=== PATIENT | male | born 1960 | race Caucasian/White ===

== ENCOUNTER 2021-07-26 05:18 | Inpatient (IN) | payer BC, OTHER ==
[2021-07-26] VITALS (10 sets, daily range): BP systolic 112–165; BP diastolic 60–101
[~2021-07-26] VITALS: Ht 177.8 cm; Wt 119.7 kg
[~2021-07-26 05:18] MED LIST: ALBU2.5V8 INH; AMLO-187 PO; ASPI325T8 PO; BENA40TA3 PO; CLON-276 PO; DOXA4TAB3 PO; FURO40TA4 PO; METF10007 PO; METO50TA6 PO; POTA-121 PO; SPIR25TA5 PO
--- NOTE | 2021-07-26 05:22 | PHYS DOC ---
Past History Past Medical History: No Pertinent History, Anemia, Arthritis, Hypertension (SUNITA PANIAGUA MD) Past Medical History: Cancer (skin ), COPD, Diabetes Additional Past Medical Histor: Maria Luz Danlos Syndrome, Sleep Apnea, BPH, Glaucoma, ED Past Medical History Chronic Sinusitis (BENJA ENNIS DO) Past Surgical History: No Surgical History, Cancer Surgery (SUNITA PANIAGUA MD) Additional Past Surgical Histo: Retinal surgery 2015, Cataract, Carpal Tunnel, Knee surgery, Hernia (BENJA ENNIS DO) Smoking: Cigarettes, Quit Greater Than 1 Year Alcohol Use: Occasionally Drug Use: None (SUNITA PANIAGUA MD) General Adult HPI: HPI: ".. I woke up with shortness of breath yesterday.. and I took one my breathing treatments... and same thing happened tonight.. but I figured.. I should come in tonight..." Patient is a 60 year old male who presents with above hx and complaints of increased dyspnea x 2 day.s The dyspnea yesterday night was relieved with albuterol treatment. Pt. denies any fever or chills. No recent travel. No specific ill contacts. No history of immunosuppression. Patient normally follows with Dr. Holly as a primary. Patient does have significant medical history with multiple diagnosis. Primary diagnosis COPD and emphysema, diabetes, retinal detachment, chronic sinusitis, chronic right knee pain, Maria Luz-Danlos syndrome, sleep apnea, hypertension, enlarged prostate, erectile dysfunction. Patient is also had multiple surgeries YAG laser both eyes 2016, endoscopic sinus surgery 316, oral surgery remove growth on tongue to of 16, cardiac catheterization on 10/05/2005, retinal detachment on 12/23/2014, cataract left eye removal 07-20 and right eye removed on 1027 bilateral arthroscopic evaluations both knees on 514 and carpal tunnel repair on 08/2012. Osteomyelitis right leg and ankle 1981 in 1981 skin cancer right elbow times 11/2001 and 2002 now noncancerous growth left elbow and right ankle removed 1973 [facility] and her [facility] repair and 2 1997 at [facility]. Patient reports he is no longer smokes tobacco.. Pt. states he has never been dx of Afib. (SUNITA PANIAGUA MD) Review of Systems: Review of Systems: Constitutional: Denies fever or chills Eyes: Denies change in visual acuity HENT: Denies nasal congestion or sore throat Respiratory: Complaints of shortness of breath Cardiovascular: Denies chest pain or edema GI: Denies abdominal pain, nausea, vomiting, bloody stools or diarrhea : Denies dysuria Musculoskeletal: Denies back pain or joint pain Integument: Denies rash Neurologic: Denies headache, focal weakness or sensory changes Endocrine: Denies polyuria or polydipsia Lymphatic: Denies swollen glands Psychiatric: Denies depression or anxiety (SUNITA PANIAGUA MD) Family History: Family History: Noncontributory to presentation. (SUNITA PANIAGUA MD) Current Medications: Current Meds: See nursing for home meds (SUNITA PANIAGUA MD) Allergies: Allergies: Allergies Coded Allergies Type Severity Reaction Last Updated Verified No Known Drug Allergies 09/01/16 No (SUNITA PANIAGUA MD) Physical Exam: PE: Constitutional: Moderate acute distress, non-toxic appearance. [] HENT: Normocephalic, atraumatic, bilateral external ears normal, oropharynx moist, no oral exudates, nose normal. [] Eyes: PERRLA, EOMI, conjunctiva normal, no discharge. [] Neck: Normal range of motion, no tenderness, supple, no stridor. [] Cardiovascular: Irregular heart rate regular rhythm, no murmur [. Frequent PVCs per monitor. Ventricle rate 100. Lungs & Thorax: Bilateral breath sounds equal apex with scattered wheezes and by basilar crackles on auscultation [] Abdomen: Bowel sounds normal, soft, no tenderness, no masses, no pulsatile masses. [] Skin: Warm, dry, no erythema, no rash. [] Back: No tenderness, no CVA tenderness. [] Extremities: No tenderness, no cyanosis, no clubbing, ROM intact, bilateral ankle edema. [] Old surgery scars right elbow bilateral knees Neurologic: Alert and oriented X 3, normal motor function, normal sensory function, no focal deficits noted. [] Psychologic: Affect anxious, judgement normal, mood normal. [] (SUNITA PANIAGUA MD) PE: Constitutional: Well developed, obese, respiratory distress, non-toxic appearance HENT: Normocephalic, atraumatic Eyes: Conjunctiva normal, no discharge Neck: Normal range of motion, supple Lungs & Thorax: BIPAP, moderate respiratory distress, equal chest rise and fall Cardiovascular: Irregular rhythm, normal rate Abdomen: Soft, no tenderness Skin: Warm, dry, no erythema, no rash Extremities: No tenderness, ROM intact, no edema Neurologic: Alert and oriented X 3, no focal deficits noted Psychologic: Affect normal, judgment normal (BENJA ENNIS DO) EKG: EKG: My interpretation EKG shows ventricular rate of 109 irregular rhythm and rate. No discernible P wave. Anterior lateral strain pattern and inferior changes. Abnormal EKG. Frequent multifocal PVCs. [] (SUNITA PANIAGUA MD) Radiology/Procedures: Radiology/Procedures: [] (SUNITA PANIAGUA MD) Radiology/Procedures: PROCEDURE: PORTABLE CHEST 1V XR CHEST 1V History: Reason: dyspnea / Spl. Instructions: / History: Comparison: August 04, 2008 Findings: Moderate diffuse interstitial thickening with ill-defined opacities. No pleural effusion. No pneumothorax. Enlarged cardiac size. Impression: 1. Moderate diffuse interstitial thickening with ill-defined opacities, may represent pulmonary edema or infection and a component of chronic interstitial changes is possible. 2. Enlarged cardiac size. Electronically signed by: Josh Wellington DO (07/26/2021 6:14 AM) [facility] (BENJA ENNIS DO) Heart Score: C/O Chest Pain: No HEART Score for Chest Pain: HEART Score for Chest Pain Response (Comments) Value History Highly Suspicious [address] Depression 2 Age > 65 2 Risk Factors 1 or 2 Risk Factors 1 Troponin < Normal Limit 0 Total 7 Risk Factors: Risk Factors: DM, Current or recent (<one month) smoker, HTN, HLP, family history of CAD, obesity. Risk Scores: Score 0 - 3: 2.5% MACE over next 6 weeks - Discharge Home Score 4 - 6: 20.3% MACE over next 6 weeks - Admit for Clinical Observation Score 7 - 10: 72.7% MACE over next 6 weeks - Early Invasive Strategies (SUNITA PANIAGUA MD) Course & Med Decision Making: Course & Med Decision Making Pertinent Labs and Imaging studies reviewed. (See chart for details) Pt. placed on BiPap 0615hrs. Pt, endorsed to Dr. Ennis at shift change. He will make disposition of pt. Impression: 1. Dyspnea 2. Hx Emphysema 3. Respiratory Failure - Hypoxia 4. DM - gluc 212 5. Hypomagnesium 1.7 6. Dysrhythmia-A. fib with frequent PVCs [] (SUNITA PANIAGUA MD) Course & Med Decision Making 0600- Sign out received from Dr. Paniagua for patient with respiratory failure- hypoxia requiring BIPAP placement. EKG with appearance of Afib with frequent PVCs. Heparin bolus previously given. Labs reviewed. Troponin WNL. Sats improved on BIPAP. CXR with some possible vascular congestion. D-dimer elevated. Heparin gtt initiated. Patient unable to tolerate laying for CT at this time. Will continue treatment with heparin. Hypomagnesemia addressed. COVID testing pending but patient does report history of Moderna vaccination. Patient requiring admission for further evaluation and treatment. Discussed with Dr. Gomes (hospitalist) who is in agreement with admission to ICU. Discussed findings and plan with patient, who acknowledges understanding and agreement. (BENJA ENNIS DO) Dragon Disclaimer: Dragon Disclaimer: This electronic medical record was generated, in whole or in part, using a voice recognition dictation system. (SUNITA PANIAGUA MD) Departure Departure: Impression: Primary Impression: Respiratory failure Qualified Codes: J96.01 - Acute respiratory failure with hypoxia Additional Impressions: Hypoxia Hypomagnesemia Elevated d-dimer Arrhythmia Qualified Codes: I49.9 - Cardiac arrhythmia, unspecified History of COPD Disposition: ADMITTED INPATIENT (ICU) Admitting Physician: Thierry Gomes (BENJA ENNIS DO) Condition: GUARDED Referrals: SHAHIDA HOLLY MD (PCP) Dragon Disclaimer This chart was dictated in whole or in part using Voice Recognition software in a busy, high-work load, and often noisy Emergency Department environment. It may contain unintended and wholly unrecognized errors or omissions. (SUNITA PANIAGUA MD) Dragon Disclaimer This chart was dictated in whole or in part using Voice Recognition software in a busy, high-work load, and often noisy Emergency Department environment. It may contain unintended and wholly unrecognized errors or omissions. (SUNITA PANIAGUA MD) Critical Care Time Critical care time was 30 minutes which includes time at bedside, spent in discussion of patient's care with specialists and/or family members, with interpretation of laboratory and/or radiological studies and is exclusive of procedures. (BENJA ENNIS DO) SUINTA PANIAGUA MD Jul 26, 2021 05:22 BENJA ENNIS DO Jul 26, 2021 07:29
[2021-07-26] MEDS ORDERED: IPRATRPIUM/ALBUTEROL 0.5/2.5MG 3 ML NEBU. ONE (05:23)
[2021-07-26 05:40] LABS: BASO # 0.1 x10^3/uL (0.0-0.2); BASO % 1 % (0-3); EOS # 0.4 x10^3/uL (0.0-0.7); EOS % 3 % (0-3); HEMATOCRIT 42.4 % (39.0-53.0); HEMOGLOBIN 13.9 g/dL (13.0-17.5); LYMPH # 3.7 x10^3/uL (1.0-4.8); LYMPH % 30 % (24-48); MEAN CORPUSCULAR HEMOGLOBIN 31 pg (25-35); MEAN CORPUSCULAR HGB CONC 33 g/dL (31-37); MEAN CORPUSCULAR VOLUME 93 fL (79-100); MONO # 1.2 x10^3/uL (0.0-1.1); MONO % 10 % (0-9); NEUT # 6.9 x10^3uL (1.8-7.7); NEUT % 56 % (31-73); PLATELET COUNT 244 x10^3/uL (140-400); RED BLOOD COUNT 4.54 x10^6/uL (4.30-5.70); RED CELL DISTRIBUTION WIDTH 14.3 % (11.5-14.5); WHITE BLOOD COUNT 12.3 x10^3/uL (4.0-11.0)
[2021-07-26 05:51] LABS: CALCIUM 8.8 mg/dL (8.5-10.1); CREATININE 0.8 mg/dL (0.7-1.3); POTASSIUM 4.1 mmol/L (3.5-5.1)
[2021-07-26] MEDS ORDERED: methylPREDNISolone SOD SUCC PF 125 MG/2 ML VIAL. IV ONE (06:00)
[2021-07-26] MEDS ORDERED: IPRATRPIUM/ALBUTEROL 0.5/2.5MG 3 ML NEBU. NEB ONE (06:00)
[2021-07-26] MEDS ORDERED: ASPIRIN CHEWABLE 81 MG TABLET. PO ONE (06:00)
[2021-07-26] MEDS ORDERED: IV RINGERS SOLUTION,LACTATED 1,000 ML IV SCH (06:00)
[2021-07-26 06:03] LABS: ALBUMIN 3.8 g/dL (3.4-5.0); DIRECT BILIRUBIN 0.3 mg/dL (0.0-0.2); MAGNESIUM 1.7 mg/dL (1.8-2.4); TOTAL BILIRUBIN 1.4 mg/dL (0.2-1.0); TOTAL PROTEIN 7.9 g/dL (6.4-8.2)
--- NOTE | 2021-07-26 06:16 | RAD ---
XR CHEST 1V History: Reason: dyspnea / Spl. Instructions: / History: Comparison: August 04, 2008 Findings: Moderate diffuse interstitial thickening with ill-defined opacities. No pleural effusion. No pneumoth orax. Enlarged cardiac size. Impression: 1. Moderate diffuse interstitial thickening with ill-defined opacities, may represent pulmonary liv a or infection and a component of chronic interstitial changes is possible. 2. Enlarged cardiac size. Electronically signed by: Josh Wellington DO (07/26/2021 6:14 AM) [facility]
[2021-07-26] MEDS ORDERED: NITROGLYCERIN OINT 1 GM PACKET. TP ONE (06:30)
[2021-07-26] MEDS ORDERED: HEPARIN for IV BOLUS 10,000 UNIT/10 ML VIAL. IV ONE (06:30)
[2021-07-26 06:31] LABS: INFLUENZA A PATIENT NEGATIVE (NEGATIVE); INFLUENZA B PATIENT NEGATIVE (NEGATIVE)
[2021-07-26 06:49] LABS: BARBITURATES NEG (NEG); BENZODIAZEPINES NEG (NEG); CANNABINOIDS NEG (NEG); COCAINE NEG (NEG); METHADONE NEG (NEG); OPIATES NEG (NEG); PHENCYCLIDINE NEG (NEG)
[2021-07-26 06:49] LABS: BGAS PH 7.37 (7.35-7.46)
[2021-07-26 06:50] LABS: AMPHETAMINE/METHAMPHETAMINE NEG (NEG)
[2021-07-26 07:00] LABS: BACTERIA,URINE 0 /HPF (0-FEW); BILIRUBIN,URINE NEG (NEG); CLARITY,URINE CLEAR; COLOR,URINE YELLOW; GLUCOSE,URINE 250 mg/dL (NEG); NITRITE,URINE NEG (NEG); RBC,URINE 0 /HPF (0-2); SQUAMOUS EPITHELIAL CELL,UR OCC /LPF; UROBILINOGEN,URINE 0.2 mg/dL (0.2 mg/dL)
[2021-07-26] MEDS ORDERED: ANTI-COAG MONITOR BY PHARMACY. MC PRN (07:00)
[2021-07-26] MEDS ORDERED: MAGNESIUM SULFATE 2GM 50 ML IV ONE ×2 (07:00→09:00)
[2021-07-26] MEDS: HEPARIN 25,000UTS/250ML PREMIX 250 ML IV PRN (07:32)
--- NOTE | 2021-07-26 07:39 | EKG ---
[address] [address] Test Date: 2021-07-26 Test Time: 05:31:33 Pat Name: SHAVONNE GLOVER Department: Room: Gender: M Dialysis Social Worker: : 1960 Requested By: SUNITA WIGGINS Order Number: [id number] Reading MD: Solomon Maloney MD Measurements Intervals [place] Rate: 0 P: MO: QRS: 0 QRSD: 0 T: 0 QT: 0 QTc: 0 Interpretive Statements PROBABLE SINUS RHYTHM WITH PAC'S AND PVCS Electronically Signed On 07-26-2021 11:49:00 CDT by Solomon Maloney MD
[2021-07-26] MEDS ORDERED: ONDANSETRON PF 4 MG/2 ML VIAL. IVP PRN (07:45)
[2021-07-26] MEDS ORDERED: IPRATRPIUM/ALBUTEROL 0.5/2.5MG 3 ML NEBU. NEB PRN (07:45)
[2021-07-26] MEDS ORDERED: ACETAMINOPHEN 325 MG TABLET PO PRN (07:45)
[2021-07-26] MEDS ORDERED: DEXTROSE 50% 25 GM / 50ML DISP.SYRIN. IV PRN (07:45)
[2021-07-26] MEDS: INSULIN LISPRO 300 UNITS/3 ML VIAL. SQ SCH ×3 (08:00→17:00)
[2021-07-26 08:15] LABS: BGAS PH 7.4 (7.35-7.46)
[2021-07-26] MEDS ORDERED: FUROSEMIDE 40 MG/4 ML VIAL IVP ONE ×3 (08:45→16:15)
--- NOTE | 2021-07-26 08:58 | PDOC2 ---
CARDIAC CONSULT DATE OF CONSULT DOS: DATE: 07/26/21 TIME: 08:24 REASON FOR CONSULT Reason for Consult AFIB, PVC's REFERRING PHYSICIAN Referring Physician Dr. Orellana SOURCE Source: Chart review, Patient HPI History of Present Illness This is a 60 yo male who presented secondary to shortness of breath. Initial EKG with concerns of possible AFIB, which prompted this consult. Patient reports shortness of breath over the last 2-3 days. Used 's breathing treatment without any significant improvement. Reports chronic LE edema. No worse than usual recently. He denies any chest pain, palpitations, dizziness, diaphoresis, or nausea/vomiting. No recent illness or fevers. No sick contacts. No previous h/o cardiac arrhythmias. Tele and EKG reviewed. Appears to be SR with multifocal PVC's and PAC's. PAST MEDICAL HISTORY Past Medical History Maria Luz-Danlos syndrome Cardiovascular: HTN Pulmonary: COPD Renal/: Benign prostatic enlarg. PAST SURGICAL HISTORY Past Surgical History sinus surgery, retinal detachment, cataract removal, carpal tunnel release, hernia repair. Past Surgical History: Cystoscopy SOCIAL HISTORY Smoke: Quit (15 years ago ) ALCOHOL: none Lives: with Family CURRENT MEDICATIONS Current Medications Current Medications Albuterol/ Ipratropium (Duoneb) 3 ml STK-MED ONCE .ROUTE ; Start 07/26/21 at 05:23; Stop 07/26/21 at 05:23; Status DC Aspirin (Aspirin Chewable) 324 mg 1X ONCE PO Last administered on 07/26/21at 05:44; Start 07/26/21 at 06:00; Stop 07/26/21 at 06:01; Status DC Lactated Ringer's 1,000 ml @ 100 mls/hr Q10H IV Last administered on 07/26/21at 05:45; Start 07/26/21 at 06:00; Stop 07/26/21 at 15:59 Albuterol/ Ipratropium (Duoneb) 3 ml 1X ONCE NEB Last administered on 07/26/21at 05:47; Start 07/26/21 at 06:00; Stop 07/26/21 at 06:01; Status DC Methylprednisolone Sodium Succinate (SOLU-Medrol 125MG VIAL) 125 mg 1X ONCE IV Last administered on 07/26/21at 05:45; Start 07/26/21 at 06:00; Stop 07/26/21 at 06:01; Status DC Heparin Sodium (Porcine) (Heparin Sodium) 4,000 unit 1X ONCE IV Last administered on 07/26/21at 06:17; Start 07/26/21 at 06:30; Stop 07/26/21 at 06:31; Status DC Nitroglycerin (Nitro-Bid Oint) 1 inch 1X ONCE TP Last administered on 07/26/21at 06:14; Start 07/26/21 at 06:30; Stop 07/26/21 at 06:31; Status DC Heparin Sodium/ Dextrose 250 ml @ 10 mls/hr CONT PRN IV SEE I/O RECORD Last administered on 07/26/21at 07:32; Start 07/26/21 at 07:00 Info (Anti-Coagulation Monitoring By Pharmacy) 1 each PRN DAILY PRN MC PER PROTOCOL; Start 07/26/21 at 07:00 Magnesium Sulfate 50 ml @ 25 mls/hr 1X ONCE IV Last administered on 07/26/21at 07:23; Start 07/26/21 at 07:00; Stop 07/26/21 at 08:59 Ondansetron HCl (Zofran) 4 mg PRN Q4HRS PRN IVP NAUSEA/VOMITING; Start 07/26/21 at 07:45; Stop 07/27/21 at 07:44 Acetaminophen (Tylenol) 650 mg PRN Q4HRS PRN PO FEVER > 100.3'F; Start 07/26/21 at 07:45; Stop 07/27/21 at 07:44 Albuterol/ Ipratropium (Duoneb) 3 ml PRN Q4HRS PRN NEB SHORTNESS OF BREATH; Start 07/26/21 at 07:45 Insulin Human Lispro (HumaLOG) 0-5 UNITS TIDWMEALS SQ ; Start 07/26/21 at 08:00 Dextrose (Dextrose 50%-Water Syringe) 12.5 gm PRN Q15MIN PRN IV SEE COMMENTS; Start 07/26/21 at 07:45 Active Scripts Active Reported Proair Hfa Inhaler (Albuterol Sulfate) 8.5 Gm Hfa.aer.ad 1 Puff INH PRN Q6HRS PRN Metformin Hcl 1,000 Mg Tablet 1 Tab PO BID Aspirin 325 Mg Tablet 1 Tab PO DAILY Doxazosin Mesylate 4 Mg Tablet 2 Tab PO DAILY Clonidine Hcl 0.2 Mg Tablet 1 Tab PO BID Metoprolol Tartrate 50 Mg Tablet 1 Tab PO BID Spironolactone 25 Mg Tablet 1 Tab PO DAILY Klor-Con M20 (Potassium Chloride) 20 Meq Tab.er.prt 1 Tab PO DAILY Amlodipine Besylate 10 Mg Tablet 1 Tab PO DAILY Furosemide 40 Mg Tablet 2 Tab PO DAILY Benazepril Hcl 40 Mg Tablet 1 Tab PO DAILY ALLERGIES Allergies: Coded Allergies: No Known Drug Allergies (Unverified , 09/01/16) ROS Review of Systems 14 point ROS conducted with pertinent positives noted above in HPI PHYSICAL EXAM General: Alert, Oriented X3, Cooperative, mild distress HEENT: Atraumatic, Mucous membr. moist/pink Lungs: Other (diminished, on BiPAP) Heart: Regular rate (SR with PAC's, PVC's), Other (distant heart tones ) Abdomen: Soft Extremities: Other (trace bilateral LE edema ) Skin: No breakdown Neuro: Normal speech, Sensation intact Psych/Mental Status: Mental status NL, Mood NL MUSCULOSKELETAL: Osteoarthritic changes both hands VITALS Vital Signs Vital Signs Date Time Temp Pulse Resp B/P (MAP) Pulse Ox O2 Delivery O2 Flow Rate FiO2 07/26/21 07:16 87 15 166/74 (104) 99 BiPAP/CPAP 15.0 LABS LABS Laboratory Tests Test 07/26/21 05:25 07/26/21 05:58 07/26/21 06:08 07/26/21 06:25 White Blood Count 12.3 x10^3/uL (4.0-11.0) Red Blood Count 4.54 x10^6/uL (4.30-5.70) Hemoglobin 13.9 g/dL (13.0-17.5) Hematocrit 42.4 % (39.0-53.0) Mean Corpuscular Volume 93 fL (79-100) Mean Corpuscular Hemoglobin 31 pg (25-35) Mean Corpuscular Hemoglobin Concent 33 g/dL (31-37) Red Cell Distribution Width 14.3 % (11.5-14.5) Platelet Count 244 x10^3/uL (140-400) Neutrophils (%) (Auto) 56 % (31-73) Lymphocytes (%) (Auto) 30 % (24-48) Monocytes (%) (Auto) 10 % (0-9) Eosinophils (%) (Auto) 3 % (0-3) Basophils (%) (Auto) 1 % (0-3) Neutrophils # (Auto) 6.9 x10^3uL (1.8-7.7) Lymphocytes # (Auto) 3.7 x10^3/uL (1.0-4.8) Monocytes # (Auto) 1.2 x10^3/uL (0.0-1.1) Eosinophils # (Auto) 0.4 x10^3/uL (0.0-0.7) Basophils # (Auto) 0.1 x10^3/uL (0.0-0.2) Prothrombin Time 10.4 SEC (9.4-11.4) Prothromb Time International Ratio 1.0 (0.9-1.1) Activated Partial Thromboplast Time 23 SEC (23-33) D-Dimer (Denae) 0.76 mg/L (0.00-0.50) Sodium Level 140 mmol/L (136-145) Potassium Level 4.1 mmol/L (3.5-5.1) Chloride Level 102 mmol/L (98-107) Carbon Dioxide Level 25 mmol/L (21-32) Anion Gap 13 (6-14) Blood Urea Nitrogen 14 mg/dL (8-26) Creatinine 0.8 mg/dL (0.7-1.3) Estimated GFR (Cockcroft-Gault) 98.0 Glucose Level 212 mg/dL (70-99) Calcium Level 8.8 mg/dL (8.5-10.1) Magnesium Level 1.7 mg/dL (1.8-2.4) Total Bilirubin 1.4 mg/dL (0.2-1.0) Direct Bilirubin 0.3 mg/dL (0.0-0.2) Aspartate Amino Transf (AST/SGOT) 37 U/L (15-37) Alanine Aminotransferase (ALT/SGPT) 66 U/L (16-63) Alkaline Phosphatase 74 U/L (46-116) Creatine Kinase 59 U/L (39-308) Troponin I Quantitative 0.052 ng/mL (0-0.055) WX-Jdh-Y-Type Natriuretic Peptide 897 pg/mL (0-124) Total Protein 7.9 g/dL (6.4-8.2) Albumin 3.8 g/dL (3.4-5.0) Lipase 90 U/L (73-393) Influenza Type A (Rapid) Negative (NEGATIVE) Influenza Type B (Rapid) Negative (NEGATIVE) Blood Gas pH 7.37 (7.35-7.46) Blood Gas PCO2 38 mmHg (35-46) Blood Gas PO2 61 mmHg (80-100) Blood Gas HCO3 22 mmol/L (21-28) Arterial Bld O2 Saturation (Calc) 90 % (92-99) FiO2 100 % Urine Collection Type Unknown Urine Color Yellow Urine Clarity Clear Urine pH 5.5 Urine Specific [place] >=1.030 Urine Protein 30 mg/dl (NEG-TRACE) Urine Glucose (UA) 250 mg/dL (NEG) Urine Ketones (Stick) 15 mg/dL (NEG) Urine Blood Neg (NEG) Urine Nitrite Neg (NEG) Urine Bilirubin Neg (NEG) Urine Urobilinogen Dipstick 0.2 mg/dL (0.2 mg/dL) Urine Leukocyte Esterase Neg (NEG) Urine RBC 0 /HPF (0-2) Urine WBC 1-4 /HPF (0-4) Urine Squamous Epithelial Cells Occ /LPF Urine Bacteria 0 /HPF (0-FEW) Urine Opiates Screen Neg (NEG) Urine Methadone Screen Neg (NEG) Urine Barbiturates Neg (NEG) Urine Phencyclidine Screen Neg (NEG) Urine Amphetamine/Methamphetamine Neg (NEG) Urine Benzodiazepines Screen Neg (NEG) Urine Cocaine Screen Neg (NEG) Urine Cannabinoids Screen Neg (NEG) Urine Ethyl Alcohol Neg (NEG) Test 07/26/21 07:55 Blood Gas pH 7.40 (7.35-7.46) Blood Gas PCO2 35 mmHg (35-46) Blood Gas PO2 125 mmHg (80-100) Blood Gas HCO3 22 mmol/L (21-28) Arterial Bld O2 Saturation (Calc) 99 % (92-99) FiO2 55 % ASSESSMENT/PLAN Assessment/Plan 1. Acute respiratory failure with acute CHF and AE COPD 2. Acute on chronic CHF with possibly diastolic dysfunction 3. Arrhythmia; EKG shows SR with RBBB and multifocal PVC's and PAC's. No AFIB noted 4. Mild troponin elevation; highest 0.093. Possibly type II, demand ischemia in setting of above. on heparin gtt. CP free. No recent echo or stress test. [facility] 2014 with normal coronaries per patients documentation 5. Hypertension; elevated 6. H/o Maria Luz-Danlos syndrome 7. Hypomagnesemia Recommendations Replace Mg Start metoprolol for arrhythmia suppression Discontinue IVFs Diuresis with monitoring of labs Monitor I and O, daily weights Trend troponin Echo to assess LV systolic function Pulmonary optimization TSH, lipids ASA therapy Supportive care Obtain records from [facility]. Will need further ischemia evaluation Further pending above IVONE HINSON APRN Jul 26, 2021 08:57
--- NOTE | 2021-07-26 09:04 | EKG ---
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
[2021-07-26] MEDS ORDERED: ALBUTEROL SULFATE 2.5 MG/3 ML NEBU. INH PRN (16:15)
[2021-07-26] MEDS ORDERED: metFORMIN 500 MG TABLET PO SCH (17:00)
[2021-07-26] MEDS: amLODIPine BESYLATE 10 MG TABLET PO SCH (17:24)
[2021-07-26] MEDS: METOPROLOL TART IMMED RELEASE 25 MG TABLET. PO SCH (17:24)
[2021-07-26] MEDS: cloNIDine HCL 0.2 MG TABLET PO SCH (20:44)
[2021-07-26] MEDS: DORZOLAMIDE/TIMOLOL 2%/0.5% OPHTH SOLUTION 10ML BOTTLE. OU SCH (20:45)
[2021-07-26] MEDS ORDERED: TERA1CAP3 PO (20:56)
[2021-07-26] MEDS ORDERED: ATOR20TA58 PO (20:56)
[2021-07-26] MEDS ORDERED: LATANOPROST 0.005% OPHTH SOLUTION 2.5ML BOTTLE. OU SCH (21:00)
[2021-07-26] MEDS ORDERED: METOPROLOL TART IMMED RELEASE 50 MG TABLET PO SCH (21:00)
[2021-07-26] MEDS ORDERED: TERAZOSIN 1 MG CAPSULE. PO SCH (21:15)
[2021-07-26] MEDS ORDERED: ATORVASTATIN CALCIUM 20 MG TABLET PO SCH (21:15)
[2021-07-27] VITALS (16 sets, daily range): BP systolic 108–163; BP diastolic 49–103
--- NOTE | 2021-07-27 01:15 | HP ---
ADMIT DATE: 07/26/2021 HISTORY OF PRESENT ILLNESS: The patient is a 60-year-old male patient who presented to the Emergency Room with a complaint of what seems to be paroxysmal nocturnal dyspnea. He woke up with shortness of breath the day before yesterday and he took one of his 's breathing treatments and the same thing happened last night and therefore, he presented to the Emergency Room. His dyspnea was relieved by albuterol treatment first time. He denied any chest pain, but did complain of chest pressure. Denied any nausea or vomiting. Denied any diaphoresis. Denied any radiation of pain to his left arm, left neck. He denied any chills, rigors or fever. He does have multiple medical problems including type 2 diabetes mellitus, hypertension, emphysema. He was a heavy smoker, quit smoking about 13 years ago, used to smoke 2 packs a day. He has multiple risk factors for premature coronary artery disease. He did undergo cardiac catheterization on 10/05/2005 and had also had cardiac catheterization in 2016 about 5 years ago. At that time, his coronary arteries were normal. He was extensively evaluated in the Emergency Room, has had lab work, imaging studies and EKG. His EKG showed that he was in heart rate of 109 with a regular rhythm and rate, no discernible P waves, has anterolateral strain pattern, inferior changes, but no ST segment elevation. Has had a chest x-ray, which showed he has moderate diffuse interstitial thickening with ill-defined opacities, no pleural effusion, no pneumothorax, enlarged cardiac size with the impression that the patient has moderate diffuse interstitial thickening with ill-defined opacities, may represent pulmonary edema or infection and a component of chronic interstitial changes, possible he has enlarged cardiac size. Has had lab work, which showed that he has mild leukocytosis. His chemistry showed that his troponins are steadily rising from 0.052 to 0.093 and the latest one was 0.161. He has hyperglycemia. His blood gases showed a pH of 7.37, a pCO2 of 38, a pO2 of 61, bicarbonate 22 and oxygen saturation was 90%. His prothrombin time, INR and APTT were normal. D-dimer was slightly elevated at 0.76. Urinalysis essentially unremarkable and toxic screen was essentially negative and the patient was admitted with acute hypoxic respiratory failure, mild hypomagnesemia, elevated D-dimer, arrhythmia. He seemed to also have congestive heart failure with a BNP of 897. He was treated with IV Lasix at 40 mg, magnesium sulfate, nitroglycerin. He was started also on heparin and given steroids and albuterol treatment and was admitted for further evaluation and treatment. PAST MEDICAL HISTORY: Significant for type 2 diabetes mellitus, hypertension, hyperlipidemia, benign prostatic hypertrophy. He has Maria Luz-Danlos syndrome, obstructive sleep apnea, glaucoma and erectile dysfunction. PAST SURGICAL HISTORY: Significant for YAG laser capsulotomy, both eyes; endoscopic sinus surgery, oral surgery to remove a growth on the tongue on 11/18/2015, underwent cardiac catheterization on 10/05/2005. His aorta is about 30% thick, has had retinal detachment to right eye on 12/23/2014. He has cataract in left eye removed on 07/20/2014 and his right eye was removed on 08/10. He underwent arthroscopic right knee surgery and carpal tunnel surgery. ALLERGIES: ALLERGIC TO ADHESIVE TAPE, but he has no known drug allergies. MEDICATIONS: He is currently on following medications: Amlodipine besylate 10 mg once a day, potassium chloride 20 mEq once a day, spironolactone 25 mg once a day, clonidine 0.2 mg twice a day, terazosin 1 mg daily, fish oil, omega 3 fatty acid 1200 mg 3 times a day, aspirin 325 mg once a day, metformin 1000 mg twice daily, atorvastatin 20 mg at bedtime, citalopram hydrobromide 20 mg once a day, dorzolamide and timolol 1 drop both eyes once a day and latanoprost eyedrops 1 drop both eyes at bedtime. He has Artificial Tears 2 drops to both eyes as needed for dryness, sterilized antimicrobial cleanser, Refresh ointment at nighttime, multivitamin 1 tablet once a day, nasal rinse 3-4 times daily. He is on CPAP at nighttime and purchasing director knee brace, right knee. FAMILY HISTORY: He has 3 sisters and 2 brothers, one sister is positive for Maria Luz-Danlos syndrome, one sister has thyroid and hypertension, and one sister is healthy. One brother at the age of 55 because of alcoholism. His father at the age of 68 because of congestive heart failure and COPD. Mother is still alive at the age of 85 and has multiple TIAs. SOCIAL HISTORY: He is , has 3 stepchildren. He quit smoking about 13 years ago. He smoked 2 packs a day for almost 30 years. He does not drink alcohol or use any recreational drugs. He has retired from [employer] after working there for 40 years. REVIEW OF SYSTEMS: The patient has bilateral cataract extraction and right eye retinal detachment. Has tinnitus in both ears, continued to have stuffy nose and sinus ulceration, but denied any sore throat, sore tongue, toothache, hoarseness of voice or difficulty swallowing. Denied any nausea, vomiting, diarrhea or constipation. Denied any hematemesis, melena or hematochezia. Denied any dysuria, frequency, or hematuria. He did complain of extremely weak stream and apparently is known to have benign prostatic hypertrophy, for which he is on terazosin. He denied any chest pain, did complain of pressure. He also complained of shortness of breath on exertion, which seems to be paroxysmal nocturnal dyspnea. PHYSICAL EXAMINATION: GENERAL: On arrival to the Emergency Room, he was clearly tachypneic, tachycardic, but there was no pallor, jaundice, cyanosis, no lymphadenopathy, no thyromegaly, no jugular venous distention, but mild bilateral lower extremity edema. VITAL SIGNS: His heart rate on arrival was 115, blood pressure was 170/119, his temperature was 97.9, his respiratory rate was 26 and oxygen saturation was only 88% on 15 liters by nonrebreather mask. He was put eventually on BiPAP machine and his oxygen saturation improved to 99%. HEAD, EYES, EARS, NOSE, AND THROAT: Normocephalic, atraumatic. NECK: Supple. HEART: Showed normal first and second heart sounds, no gallop or murmur. CHEST: Shows central trachea, equally reduced expansion, reduced air entry, vesicular breath sounds with bilateral basal crepitation and scattered rhonchi. ABDOMEN: Distended, soft, nontender. NEUROLOGIC: He was grossly intact. LABORATORY DATA: His lab work showed a white cell count of 12,300, hemoglobin 13.9, hematocrit 42, MCV 93 and a platelet count 244,000 with a manual differential showed 56% polymorphs, 30% lymphocytes and 10% monocytes. His initial blood gases showed a pH of 7.37, a pCO2 of 38, pO2 of 61, bicarbonate 22, oxygen saturation was 90% on FiO2 of 100%. His chemistry showed a serum sodium of 140, potassium 4.1, chloride 102, bicarbonate 25, anion gap of 13, BUN 14, creatinine 0.8. Estimated GFR was 98 mL per minute. His glucose was 212, calcium was 8.8, magnesium was 1.7. Total bilirubin, AST, ALT, alkaline phosphatase were normal. His CK was 59. His first set of cardiac enzymes showed troponin to be 0.052, the second was 0.093 and the third was 0.161. His beta natriuretic peptide was 897. Total protein 7.9, albumin was 3.8, serum lipase was 90 and TSH was 1.264. Urinalysis was essentially unremarkable and his toxic screen was negative. His coronavirus by PCR was not detectable and influenza A and B negative. ASSESSMENT AND PLAN: In summary, this is a 60-year-old male patient, who was awakened from sleep because of shortness of breath, has chest discomfort. He has multiple risk factors for coronary artery disease including hypertension, hyperlipidemia, type 2 diabetes mellitus as well as a long history of cigarette smoking. His 3 sets of cardiac enzymes are trending up. He has also what seemed to be new onset atrial fibrillation with slow ventricular response, for which he was started on heparin drip. My plan is to reconcile all medications. I will contact the Cardiology team, as with this consistent rising of his cardiac enzymes, I wonder whether he needs to be transferred to [place]. THI/ANNIKA DR: Zenaida TID: [id number]
[2021-07-27] MEDS: HEPARIN 25,000UTS/250ML PREMIX 250 ML IV PRN (04:17)
[2021-07-27 06:07] LABS: HEMATOCRIT 35.6 % (39.0-53.0); HEMOGLOBIN 11.6 g/dL (13.0-17.5); RED BLOOD COUNT 3.81 x10^6/uL (4.30-5.70); RED CELL DISTRIBUTION WIDTH 14.4 % (11.5-14.5); WHITE BLOOD COUNT 12.8 x10^3/uL (4.0-11.0)
[2021-07-27 06:25] LABS: ALBUMIN 3.2 g/dL (3.4-5.0); CALCIUM 8.3 mg/dL (8.5-10.1); CREATININE 0.8 mg/dL (0.7-1.3); POTASSIUM 3.5 mmol/L (3.5-5.1); TOTAL BILIRUBIN 0.9 mg/dL (0.2-1.0); TOTAL PROTEIN 6.5 g/dL (6.4-8.2)
--- NOTE | 2021-07-27 06:38 | NUR ---
Pt slept well throughout the night. Pt used CPAP with 2L NC bled into it, pt tolerated well throughout the night and maintained sats >92%. Pt underlying heart rhythm appears to be SR with a BBB with frequent PVC and PACs. Pt states he is feeling much better. Denied any complaints of pain. Pt states he thinks he can tolerate his Chest CT today, as he was unable to do so yesterday. Notified radiology this AM to get completed. Pt remains on Heparin gtt per protocol.
[2021-07-27] MEDS ORDERED: CONTRAST GIVEN. MC PRN (06:45)
[2021-07-27] MEDS ORDERED: IOHEXOL 350 MG/ML 100 ML VIAL. IV ONE (07:00)
[2021-07-27] MEDS: INSULIN LISPRO 300 UNITS/3 ML VIAL. SQ SCH ×3 (08:00→17:00)
[2021-07-27] MEDS ORDERED: ASPIRIN ENTERIC COATED 81 MG TABLET.DR. PO SCH (08:00)
--- NOTE | 2021-07-27 08:09 | RAD ---
EXAMINATION: CTA CHEST CLINICAL HISTORY: Shortness of Breath, hx of dvt. Technique: Spiral CT acquisition of the chest from the thoracic inlet to the upper abdomen following IV contrast with coronal and sagittal reformatted images also provided for review. 3D maximum intensi ty projection images also performed. CT Dose Reduction Employed: One or more of the following individualized dose reduction techniques wer e utilized for this examination: 1. Automated exposure control 2. Adjustment of the mA and/or kV ac cording to patient size 3. Use of iterative reconstruction technique. Comparison: Chest radiograph 07/26/2020, CT chest 05/18/2006 FINDINGS: Pulmonary Vasculature: No evidence of main, lobar, or definite segmental pulmonary arterial thrombus. Lung Parenchyma, Pleura, and Airways: No focal consolidation. Dependent subsegmental atelectasis bila terally. Upper lobe predominant centrilobular and paraseptal emphysematous changes. Lower lobe predom inant smooth interstitial thickening, nonspecific but may be related to edema or atypical infection. No pleural effusion. Central airways patent. Lower Neck, Lymph Nodes, and Mediastinum: Visualized thyroid gland within normal limits. Multiple pro minent but nonenlarged mediastinal lymph nodes, nonspecific but possibly reactive. Heart, Pericardium, and Thoracic Vessels: Mild cardiomegaly. No pericardial effusion. Minimal aortic atherosclerotic calcification without aneurysm. No coronary artery atherosclerotic calcifications are noted, although the study is not optimized for coronary assessment. Bones and Soft Tissues: 8 mm sclerotic lesion in the left posterior T1 vertebral body/pedicle, nonspe cific but at least partially visualized on a prior exam from 2005 and therefore most likely benign. M ultilevel degenerative changes in the thoracic spine. Upper Abdomen: Diffuse hypoattenuation of the hepatic parenchyma, compatible with steatosis. IMPRESSION: No evidence of main, lobar, or definite segmental pulmonary embolism. Nonspecific interstitial thickening, possibly related to edema and/or atypical infection. Emphysema. Mild cardiomegaly. Electronically signed by: Anam Gomez DO (07/27/2021 8:06 AM) [facility]
[2021-07-27] MEDS: METOPROLOL TART IMMED RELEASE 25 MG TABLET. PO SCH (08:15)
[2021-07-27] MEDS: amLODIPine BESYLATE 10 MG TABLET PO SCH (08:16)
[2021-07-27] MEDS: cloNIDine HCL 0.2 MG TABLET PO SCH (08:16)
[2021-07-27] MEDS: DORZOLAMIDE/TIMOLOL 2%/0.5% OPHTH SOLUTION 10ML BOTTLE. OU SCH (08:18)
[2021-07-27] MEDS ORDERED: SPIRONOLACTONE 25 MG TABLET PO SCH (09:00)
[2021-07-27] MEDS ORDERED: DOXAZOSIN MESYLATE 4 MG TABLET PO SCH (09:00)
[2021-07-27] MEDS ORDERED: LISINOPRIL 20 MG TABLET PO SCH (09:00)
[2021-07-27] MEDS ORDERED: FUROSEMIDE 40 MG/4 ML VIAL IVP SCH (09:00)
[2021-07-27] MEDS ORDERED: FUROSEMIDE 40 MG TABLET PO SCH (09:00)
[2021-07-27] MEDS ORDERED: ASPIRIN 325 MG TABLET PO SCH (09:00)
[2021-07-27] MEDS ORDERED: POTASSIUM CHLORIDE 20 MEQ TABLET.ER. PO SCH ×2 (09:00→21:00)
--- NOTE | 2021-07-27 09:27 | PDOC ---
IVONE HINSON TONY 07/27/21 0927: CARDIO Progress Notes Date & Time Date of Service DATE: 07/27/21 TIME: 08:18 Time of Evaluation 08:18 Subjective Notes No chest pain, breathing improved. Vitals Vitals Vital Signs Date Time Temp Pulse Resp B/P (MAP) Pulse Ox O2 Delivery O2 Flow Rate FiO2 07/27/21 08:16 86 141/84 07/27/21 06:00 16 95 BiPAP/CPAP 2.0 07/26/21 18:49 98.2 Weight Weight [ ] Input and Output I.O. Intake and Output 07/27/21 07:00 Intake Total 1730 ml Output Total 4225 ml Balance -2495 ml Intake Oral 1680 ml IV Total 50 ml Output Urine Total 4225 ml Laboratory Labs Laboratory Tests Test 07/26/21 05:25 07/26/21 05:58 07/26/21 06:08 07/26/21 06:25 White Blood Count 12.3 x10^3/uL (4.0-11.0) Red Blood Count 4.54 x10^6/uL (4.30-5.70) Hemoglobin 13.9 g/dL (13.0-17.5) Hematocrit 42.4 % (39.0-53.0) Mean Corpuscular Volume 93 fL (79-100) Mean Corpuscular Hemoglobin 31 pg (25-35) Mean Corpuscular Hemoglobin Concent 33 g/dL (31-37) Red Cell Distribution Width 14.3 % (11.5-14.5) Platelet Count 244 x10^3/uL (140-400) Neutrophils (%) (Auto) 56 % (31-73) Lymphocytes (%) (Auto) 30 % (24-48) Monocytes (%) (Auto) 10 % (0-9) Eosinophils (%) (Auto) 3 % (0-3) Basophils (%) (Auto) 1 % (0-3) Neutrophils # (Auto) 6.9 x10^3uL (1.8-7.7) Lymphocytes # (Auto) 3.7 x10^3/uL (1.0-4.8) Monocytes # (Auto) 1.2 x10^3/uL (0.0-1.1) Eosinophils # (Auto) 0.4 x10^3/uL (0.0-0.7) Basophils # (Auto) 0.1 x10^3/uL (0.0-0.2) Prothrombin Time 10.4 SEC (9.4-11.4) Prothromb Time International Ratio 1.0 (0.9-1.1) Activated Partial Thromboplast Time 23 SEC (23-33) D-Dimer (Denae) 0.76 mg/L (0.00-0.50) Sodium Level 140 mmol/L (136-145) Potassium Level 4.1 mmol/L (3.5-5.1) Chloride Level 102 mmol/L (98-107) Carbon Dioxide Level 25 mmol/L (21-32) Anion Gap 13 (6-14) Blood Urea Nitrogen 14 mg/dL (8-26) Creatinine 0.8 mg/dL (0.7-1.3) Estimated GFR (Cockcroft-Gault) 98.0 Glucose Level 212 mg/dL (70-99) Calcium Level 8.8 mg/dL (8.5-10.1) Magnesium Level 1.7 mg/dL (1.8-2.4) Total Bilirubin 1.4 mg/dL (0.2-1.0) Direct Bilirubin 0.3 mg/dL (0.0-0.2) Aspartate Amino Transf (AST/SGOT) 37 U/L (15-37) Alanine Aminotransferase (ALT/SGPT) 66 U/L (16-63) Alkaline Phosphatase 74 U/L (46-116) Creatine Kinase 59 U/L (39-308) Troponin I Quantitative 0.052 ng/mL (0-0.055) CH-Mcq-W-Type Natriuretic Peptide 897 pg/mL (0-124) Total Protein 7.9 g/dL (6.4-8.2) Albumin 3.8 g/dL (3.4-5.0) Lipase 90 U/L (73-393) Thyroid Stimulating Hormone (TSH) 1.264 uIU/mL (0.358-3.740) Coronavirus (COVID-19)(PCR) Not detected (NOT DETECTD) Influenza Type A (Rapid) Negative (NEGATIVE) Influenza Type B (Rapid) Negative (NEGATIVE) Blood Gas pH 7.37 (7.35-7.46) Blood Gas PCO2 38 mmHg (35-46) Blood Gas PO2 61 mmHg (80-100) Blood Gas HCO3 22 mmol/L (21-28) Arterial Bld O2 Saturation (Calc) 90 % (92-99) FiO2 100 % Urine Collection Type Unknown Urine Color Yellow Urine Clarity Clear Urine pH 5.5 Urine Specific Victoria >=1.030 Urine Protein 30 mg/dl (NEG-TRACE) Urine Glucose (UA) 250 mg/dL (NEG) Urine Ketones (Stick) 15 mg/dL (NEG) Urine Blood Neg (NEG) Urine Nitrite Neg (NEG) Urine Bilirubin Neg (NEG) Urine Urobilinogen Dipstick 0.2 mg/dL (0.2 mg/dL) Urine Leukocyte Esterase Neg (NEG) Urine RBC 0 /HPF (0-2) Urine WBC 1-4 /HPF (0-4) Urine Squamous Epithelial Cells Occ /LPF Urine Bacteria 0 /HPF (0-FEW) Urine Opiates Screen Neg (NEG) Urine Methadone Screen Neg (NEG) Urine Barbiturates Neg (NEG) Urine Phencyclidine Screen Neg (NEG) Urine Amphetamine/Methamphetamine Neg (NEG) Urine Benzodiazepines Screen Neg (NEG) Urine Cocaine Screen Neg (NEG) Urine Cannabinoids Screen Neg (NEG) Urine Ethyl Alcohol Neg (NEG) Test 07/26/21 07:55 07/26/21 08:05 07/26/21 11:15 07/26/21 13:00 Blood Gas pH 7.40 (7.35-7.46) Blood Gas PCO2 35 mmHg (35-46) Blood Gas PO2 125 mmHg (80-100) Blood Gas HCO3 22 mmol/L (21-28) Arterial Bld O2 Saturation (Calc) 99 % (92-99) FiO2 55 % Troponin I Quantitative 0.093 ng/mL (0-0.055) 0.161 ng/mL (0-0.055) Activated Partial Thromboplast Time 25 SEC (23-33) Test 07/26/21 17:12 07/26/21 17:30 07/26/21 20:10 07/26/21 20:44 Glucose (Fingerstick) 239 mg/dL (70-99) 191 mg/dL (70-99) Troponin I Quantitative 0.120 ng/mL (0-0.055) Activated Partial Thromboplast Time 25 SEC (23-33) Test 07/27/21 05:35 07/27/21 08:12 White Blood Count 12.8 x10^3/uL (4.0-11.0) Red Blood Count 3.81 x10^6/uL (4.30-5.70) Hemoglobin 11.6 g/dL (13.0-17.5) Hematocrit 35.6 % (39.0-53.0) Mean Corpuscular Volume 94 fL (79-100) Mean Corpuscular Hemoglobin 31 pg (25-35) Mean Corpuscular Hemoglobin Concent 33 g/dL (31-37) Red Cell Distribution Width 14.4 % (11.5-14.5) Platelet Count 219 x10^3/uL (140-400) Activated Partial Thromboplast Time 28 SEC (23-33) Sodium Level 139 mmol/L (136-145) Potassium Level 3.5 mmol/L (3.5-5.1) Chloride Level 103 mmol/L (98-107) Carbon Dioxide Level 27 mmol/L (21-32) Anion Gap 9 (6-14) Blood Urea Nitrogen 14 mg/dL (8-26) Creatinine 0.8 mg/dL (0.7-1.3) Estimated GFR (Cockcroft-Gault) 98.0 BUN/Creatinine Ratio 18 (6-20) Glucose Level 153 mg/dL (70-99) Calcium Level 8.3 mg/dL (8.5-10.1) Total Bilirubin 0.9 mg/dL (0.2-1.0) Aspartate Amino Transf (AST/SGOT) 21 U/L (15-37) Alanine Aminotransferase (ALT/SGPT) 46 U/L (16-63) Alkaline Phosphatase 57 U/L (46-116) Troponin I Quantitative 0.137 ng/mL (0-0.055) Total Protein 6.5 g/dL (6.4-8.2) Albumin 3.2 g/dL (3.4-5.0) Albumin/Globulin Ratio 1.0 (1.0-1.7) Glucose (Fingerstick) 153 mg/dL (70-99) Microbiology Micro Microbiology 07/26/21 Blood Culture - Preliminary, Resulted NO GROWTH AFTER 1 DAY... Physical Exams HEENT: Neck Supple W Full Motion Chest: Symmetric Lungs: Other (diminished bases) Heart: RRR (SR with frequent PVC's, PAC's ) Abdomen: Soft N/T Extremities: Other (trace bilateral LE edema ) Neurology: alert, oriented Assessment Assessment 1. Acute respiratory failure with acute CHF and AE COPD 2. Acute on chronic systolic CHF; improved s/p IV diuresis 3. Cardiomyopathy; preliminary echo with depressed LV systolic function. No known h/o CMP 4. Arrhythmia; EKG shows SR with RBBB and multifocal PVC's and PAC's. No AFIB noted. Continue to have frequent PVC's, PAC's 5. Mild troponin elevation; highest 0.16. Possibly type II, demand ischemia in setting of above. on heparin gtt. CP free. No recent echo or stress test. [facility] 2014 at [facility] with normal coronaries per patients documentation. Chest tightness only present when having difficulty breathing 6. Hypertension; now controlled 7. H/o Maria Luz-Danlos syndrome 8. Hypomagnesemia; replaced Recommendations ASA, statin therapy Repeat troponin level. If no further elevation noted, may discontinue heparin gtt Lipid panel Continue metoprolol for arrhythmia suppression; convert to Toprol Discontinue amlodipine. Start losartan for HF optimization. Continue Aldactone Ongoing diuresis with monitoring of labs Monitor I and O, daily weights Obtain cardiac records from [facility] on the [place] Will need further ischemia evaluation Further pending above RUFINO KRAUSE MD 07/27/21 1550: CARDIO Progress Notes Plan Plan Pt. seen and examined. Agree with above RECREATION MANAGER note. Await OSH records. Will consider cath versus outpt stress testing. Supportive care and start GDMT. IVONE HINSON APRN Jul 27, 2021 09:27 RUFINO KRAUSE MD Jul 27, 2021 15:50
[2021-07-27] MEDS ORDERED: DORZ10DR21 EACHEYE (12:10)
[2021-07-27] MEDS ORDERED: LATA2.5D2 OU (12:10)
[2021-07-27] MEDS ORDERED: POTA-121 PO ×2 (12:10)
[2021-07-27] MEDS ORDERED: POLY15DR27 EACHEYE (12:10)
[2021-07-27] MEDS ORDERED: CITA20TA6 PO (12:10)
[2021-07-27] MEDS ORDERED: OMEG1CAP65 PO (12:10)
[2021-07-27] MEDS ORDERED: TIOT18CA IH (12:48)
[2021-07-27] MEDS ORDERED: BENA20TA4 PO (12:48)
[2021-07-27] MEDS ORDERED: IPRA15SP NS (12:48)
[2021-07-27] MEDS ORDERED: FURO80TA3 PO (12:48)
[2021-07-27] MEDS ORDERED: CITALOPRAM 20 MG TABLET. PO SCH (13:00)
--- NOTE | 2021-07-27 14:18 | PN ---
DATE: 07/27/2021 ATTENDING PHYSICIAN: Dr. Gomes. SUBJECTIVE: He is breathing better, less dyspneic. He is diuresing well. No chest pain. OBJECTIVE FINDINGS: VITAL SIGNS: Blood pressure this morning is 141/84, pulse is 86 and regular. He is afebrile. Oxygen saturation 96% on 2 liters. HEENT: Head is without trauma. Pupils are reactive. NECK: Neck veins are slightly distended at 45 degrees. LUNGS: Actually clear with good breath sounds. No rales appreciated. CARDIOVASCULAR: Showed distant heart tones. No gallops. ABDOMEN: Soft. EXTREMITIES: Showed trace edema. NEUROLOGIC: Focally intact. Speech is fluent. SKIN: Warm and dry. ASSESSMENT: 1. A 60-year-old gentleman with ischemic cardiomyopathy. 2. Advanced chronic obstructive pulmonary disease. 3. History of Maria Luz-Danlos syndrome. 4. Elevation of cardiac enzymes. He noted that his last catheterization at [facility] in 2014 was clean. PLAN: 1. Keep in ICU. 2. Follow up cardiac enzymes later this morning. 3. We will stop the heparin drip when that is trending downwards. 4. Recommendation per our landscape crew member here whether he needs further invasive testing on this admission. GUCCI/OMI DR: Kalpana TID: [id number] CC: Jhon Flores
--- NOTE | 2021-07-27 14:28 | NUR ---
pt placed on NRB over HFNC as her spo2 kept dropping in the high 70s, low 80s. Pt refuses to keep mask on. Explained to her several times that she needs it, she still pulls it off frequently. spo2 currently 88 to 91% on 15L HFNC Addendum: 07/27/21 at 1434 by ROJELIO BARILLAS RN incorrect pt
[2021-07-27] MEDS ORDERED: AMIODARONE 450 MG in IV DEXTROSE 5% 250 ML IV PRN (16:15)
--- NOTE | 2021-07-27 16:24 | CARD ---
MR#: [id number] Date of Study: 07/26/2021 Ordering Physician: IVONE HINSON, Referring Physician: IVONE HINSON, Tech: Kennedy Jimenez [facility] APPROVED REPORT EXAM: Two-dimensional and M-mode echocardiogram with Doppler and color Doppler. Other Information Quality : AverageHR: 88bpm Rhythm : PVC's INDICATION Abnormal ECG Dyspnea RISK FACTORS Hypertension Obesity Hyperlipidemia Diabetes Smoking 2D DIMENSIONS Left Atrium(2D)5.4 (1.6-4.0cm)IVSd1.3 (0.7-1.1cm) Aortic Root(2D)3.7 (2.0-3.7cm)LVDd7.6 (3.9-5.9cm) LVOT Diameter2.3 (1.8-2.4cm)PWd1.3 (0.7-1.1cm) LVDs6.3 (2.5-4.0cm)FS (%) 17.0 % SV105.9 ml Aortic Valve AoV Peak Fernie.139.6cm/sAoV VTI23.1cm AO Peak GR.7.8mmHgLVOT Peak Fernie.112.5cm/s LVOT VTI 19.91cmAO Mean GR.5mmHg KATHIE (VMAX)3.16pv8FCU (VTI)3.50cm2 Mitral Valve MV E Hikrjlmo031.8cm/sMV E Peak Gr.7mmHg MV DECEL [id number] A Cfkskjdb603.6cm/s MV E Mean Gr.3mmHgE/A Ratio1.1 Pulmonary Valve PV Peak Gmcvbjhu456.1cm/sPV Peak Grad.5mmHg Tricuspid Valve TR P. Hdailirn723jl/sTR Peak Gr.37mmHg Pulmonary Vein S1 Lmmnyyps13.0cm/sD2 Qamrbbpa76.4cm/s LEFT VENTRICLE The Left Ventricle is severely dilated. There is borderline to mild concentric left ventricular hyper trophy. Basal inferior, posterior and lateral wall hypokinesis. The ejection fraction is estimated at 40%. Transmitral Doppler flow pattern is Grade II-pseudonormal filling dynamics. No left ventricle t hrombus noted on this study. There is no ventricular septal defect visualized. There is no left ventr icular aneurysm. There is no mass noted in the left ventricle. RIGHT VENTRICLE The right ventricle is normal size. There is normal right ventricular wall thickness. The right ventr icular systolic function is normal. ATRIA The left atrium is moderately dilated. The right atrium size is normal. The interatrial septum is int act with no evidence for an atrial septal defect or patent foramen ovale as noted on 2-D or Doppler i maging. AORTIC VALVE The aortic valve is normal in structure and function. Doppler and Color Flow revealed no significant aortic regurgitation. There is no significant aortic valvular stenosis. There is no aortic valvular v egetation. MITRAL VALVE The mitral valve is thickened but opens well. There is no evidence of mitral valve prolapse. There is no mitral valve stenosis. Doppler and Color-flow revealed mild to moderate mitral regurgitation. TRICUSPID VALVE The tricuspid valve is normal in structure and function. Doppler and Color Flow revealed mild tricusp id regurgitation. The PA pressure was estimated at 47 mmHg. There is no tricuspid valve prolapse or v egetation. There is no tricuspid valve stenosis. PULMONIC VALVE The pulmonary valve is normal in structure and function. Doppler and Color Flow revealed no pulmonic valvular regurgitation. There is no pulmonic valvular stenosis. GREAT VESSELS The aortic root is normal in size. The ascending aorta is normal in size. The pulmonary artery is nor mal. The IVC is normal in size and collapses >50% with inspiration. PERICARDIAL EFFUSION There is no pleural effusion. There is no evidence of significant pericardial effusion. Critical Notification Critical Value: No <Conclusion> Basal inferior, posterior and lateral wall hypokinesis. The ejection fraction is estimated at 40%. Mild to moderate mitral regurgitation. Mild tricuspid regurgitation. The PA pressure was estimated at 47 mmHg. There is no evidence of significant pericardial effusion. Signed by : Omi Griggs, Electronically Approved : 07/27/2021 16:23:37
[2021-07-27] MEDS ORDERED: AMIODARONE 150 MG in IV DEXTROSE 5% 100 ML IVP ONE (16:30)
--- NOTE | 2021-07-27 16:57 | NUR ---
Dr Maloney in to see pt, he would like pt transferred to [facility], [address], for a cardiac cath in the morning as well as an amiodarone gtt with bolus. This RN called Dr Mccabe, he agreed to dc pt and transfer to [facility], he called DR Gomes who agreed to accept pt at [facility]. [employer] notified of request to transfer. Pt and pt updated on POC, both agree.
--- NOTE | 2021-07-27 17:03 | DS ---
DATE OF DISCHARGE: 07/27/2021 ATTENDING PHYSICIAN: Dr. Thierry Gomes. FINAL DISCHARGE DIAGNOSES: 1. Acute myocardial infarction, non-ST elevation myocardial infarction. 2. Congestive heart failure. 3. Ischemic cardiomyopathy. 4. Congestive heart failure, improved. 5. Hypoxemia. 6. Hypokalemia, treated. 7. Hypertension. HISTORY AND PHYSICAL: The patient is a pleasant 60-year-old gentleman. 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 He presented with increasing chest pressure, shortness of breath and evidence of coronary ischemia. PHYSICAL EXAMINATION: Please see the dictated note. PERTINENT LABORATORY AND X-RAY STUDIES: Admission CBC is on the chart. Potassium was 3.1 mEq, this has been replaced. The first set of cardiac enzymes, troponin was 0.05, second set 0.161, third set 0.126. COURSE IN THE HOSPITAL: The patient was admitted to the ICU. He was started on a heparin drip. Serial enzymes were done. Formal Cardiology consultation was obtained. Their recommendation is on the chart. Echocardiogram was accomplished and the preliminary report showed a diminished ejection fraction estimated at 25-30%. Heparin was initiated and continued overnight. At this time, because of his symptoms and abnormal echocardiogram, it was recommended that he be transferred to [facility], Dr. Maloney saw the patient in consultation. He plans on cardiac catheterization and further evaluation. On the second hospital day, arrangements were made for the patient to go to [facility] by ambulance. Hemodynamically, he was stable. He was having some ectopy. Potassium was ordered orally and he was stable for transfer. His prognosis is guarded. The patient was then discharged and transferred to [facility] for further cardiac evaluation and most likely cardiac catheterization tomorrow. TOTAL DISCHARGE TIME SPENT: 39 minutes. GUCCI/DANNIE DR: Kalpana TID: [id number] CC: Jhon Flores MD
--- NOTE | 2021-07-27 18:37 | NUR ---
pt to go to room 650 at [facility], notified pt and , awaiting call back from RN to give report and then will call EMS
--- NOTE | 2021-07-27 19:15 | NUR ---
report called to KATHERINE Tom at [facility]. EMS called and pt notified.
--- NOTE | 2021-07-27 19:42 | NUR ---
Discharge Note: SHAVONNE GLOVER ICU Discharge instructions and discharge home medications reviewed with Other facility and a copy given. All questions have been answered and understanding verbalized. The following instructions and handouts were given: andrew jamil DC packet. Discontinued lines and drains: Peripheral IV remains in place, #20 Rt. FA with amiodarone gtt infusing at 33.3ml/hr. Patient discharged to [facility] with Ambulance Personnel via Stretcher. Pt sent out with all belongings.
[2021-07-28] MEDS ORDERED: LOSARTAN 50 MG TABLET. PO SCH (09:00)
[2021-07-28] MEDS ORDERED: METOPROLOL SUCC 24HR ER 50 MG TAB.ER.24H. PO SCH (09:00)
[2021-07-28] MEDS ORDERED: SPIRIVA HANDIHALER INH SCH (09:00)
[2021-07-29] MEDS ORDERED: metFORMIN 500 MG TABLET PO SCH (08:00)
== END 2021-07-27 19:42 | disposition short-term general hospital (02) | DRG 280 ==
LOC: ER 05:18 → ICU 07:44
PROVIDERS: ADMIT Internal Medicine; ATTEND Internal Medicine
PROC: 5A0935A Assistance with Respiratory Ventilation, Less than 24 Consecutive Hours, High Flow/Velocity Cannula (ICD-10-PCS; principal; 2021-07-26)
PROC: 5A09357 Assistance with Respiratory Ventilation, Less than 24 Consecutive Hours, Continuous Positive Airway Pressure (ICD-10-PCS; 2021-07-26)
PROC: 5A09357 Assistance with Respiratory Ventilation, Less than 24 Consecutive Hours, Continuous Positive Airway Pressure (ICD-10-PCS; 2021-07-27)
DX: I21.4 Non-ST elevation (NSTEMI) myocardial infarction (principal); I50.23 Acute on chronic systolic (congestive) heart failure; J96.01 Acute respiratory failure with hypoxia; Q79.60 Ehlers-Danlos syndrome, unspecified; Z20.822 Contact with and (suspected) exposure to COVID-19; D72.829 Elevated white blood cell count, unspecified; E11.65 Type 2 diabetes mellitus with hyperglycemia; E78.5 Hyperlipidemia, unspecified; E83.42 Hypomagnesemia; E87.6 Hypokalemia; I11.0 Hypertensive heart disease with heart failure; I25.5 Ischemic cardiomyopathy; I45.10 Unspecified right bundle-branch block; G47.33 Obstructive sleep apnea (adult) (pediatric); G89.29 Other chronic pain; I48.91 Unspecified atrial fibrillation; J43.9 Emphysema, unspecified; N40.0 Benign prostatic hyperplasia without lower urinary tract symptoms; Z82.49 Family history of ischemic heart disease and other diseases of the circulatory system; Z82.5 Family history of asthma and other chronic lower respiratory diseases; Z85.828 Personal history of other malignant neoplasm of skin; Z87.891 Personal history of nicotine dependence
CPT/HCPCS: 36415; 36600; 71045; 71275; 80048; 80053; 80061; 80076; 80307; 81001; 82550; 82803; 82947; 83690; 83735; 83880; 84443; 84484; 85025; 85027; 85379; 85610; 85730; 87040; 87804; 93005; 93306; 94640; 94660; 96361; 96365; 96375; J0282; J1644; J1940; J2930; J3475; J7120; Q9967; U0003; 99285-25

== ENCOUNTER 2021-08-06 02:18 | Emergency (ER) | payer BC ==
[~2021-08-06] VITALS: Ht 182.9 cm; Wt 118.1 kg
[~2021-08-06 02:18] MED LIST changes: +ATOR20TA58 PO; +BENA20TA4 PO; +CITA20TA6 PO; +DORZ10DR21 EACHEYE; +FURO80TA3 PO; +IPRA15SP NS; +LATA2.5D2 OU; +OMEG1CAP65 PO; +POLY15DR27 EACHEYE; +TERA1CAP3 PO; +TIOT18CA IH
--- NOTE | 2021-08-06 02:23 | PHYS DOC ---
Past History Past Medical History: CAD, Cancer, CHF, COPD, Diabetes, Heart Disease Additional Past Medical Histor: Maria Luz Danlos Syndrome, Sleep Apnea, BPH, Glaucoma, ED Past Surgical History: No Surgical History, Cancer Surgery Additional Past Surgical Histo: Retinal surgery 2015, Cataract, Carpal Tunnel, Knee surgery, Hernia Smoking: Cigarettes, Quit Greater Than 1 Year Alcohol Use: Rarely Drug Use: None General Adult EDM: Chief Complaint: SHORTNESS OF BREATH HPI: HPI: ".. I just... got....really.. short.. of... breath..... bad heart... bad lungs..." Patient is a 60 year old male who presents with above hx in respiratory failure requiring Bipap to keep sats. above 80.. Pt. follows with Dr. Holly. Pt. awoke in severe respiratory distress. Pt. has Review of Systems: Review of Systems: Constitutional: Denies fever or chills Eyes: Denies change in visual acuity HENT: Denies nasal congestion or sore throat Respiratory: Complains shortness of breath Cardiovascular: Denies chest pain or edema GI: Denies abdominal pain, nausea, vomiting, bloody stools or diarrhea : Denies dysuria Musculoskeletal: Denies back pain or joint pain Integument: Denies rash Neurologic: Denies headache, focal weakness or sensory changes Endocrine: Denies polyuria or polydipsia Lymphatic: Denies swollen glands Psychiatric: Denies depression or anxiety Family History: Family History: Noncontributory to presentation Current Medications: Current Meds: See nursing for home meds Allergies: Allergies: Allergies Coded Allergies Type Severity Reaction Last Updated Verified No Known Drug Allergies 08/06/21 No Physical Exam: PE: Constitutional:in acute distress, ill in appearance. [] HENT: Normocephalic, atraumatic, bilateral external ears normal, oropharynx mois t, no oral exudates, nose swollen turbinates and clear rhinorrhea. Currently tolerating p.o. CPAP Eyes: PERRLA, EOMI, conjunctiva injected, no discharge. [] Neck: Normal range of motion, no tenderness, supple, no stridor. More than 17 inches circumference Cardiovascular: Tachycardia heart rate irregular rhythm, no murmur [. Monitor shows multiple PVCs] Lungs & Thorax: Bilateral breath sounds equal apex with scattered crackles rhonchi throughout on auscultation [] Abdomen: Bowel sounds decreased, soft, no tenderness, no masses, no pulsatile masses. [] Skin: Warm, extremely diaphoretic,, no erythema, no rash. [] Back: No tenderness, no CVA tenderness. [] Extremities: No tenderness, no cyanosis, no clubbing, ROM intact, bilateral ankle edema. [] Neurologic: Alert and oriented X 3, moves all extremities on request, no new focal deficits noted. By family and Psychologic: Affect anxious, judgement normal, mood depressed. EKG: EKG: My interpretation of EKG shows a ventricular rate of 88 bpm. Irregular rhythm with extensive respiratory artifact. Does have right ventricular hypertrophic changes and anterior lateral strain pattern. Patient has right axis deviation. Abnormal EKG time of this EKG is 0 to 26 hours [] Radiology/Procedures: Radiology/Procedures: [][place] [address] IMAGING REPORT Signed PATIENT: SHAVONNE GLOVER DACCOUNT: [id number] : 1960 LOCATION: ER AGE: 60 SEX: M EXAM STATUS: REG ER ORD. PHYSICIAN: SUNITA WIGGINS MD REASON: dyspnea PROCEDURE: PORTABLE CHEST 1V EXAMINATION: XR CHEST 1V CLINICAL HISTORY: Dyspnea EXAM DATE/TIME: 08/06/2021 2:44 AM COMPARISON: 07/26/2021 FINDINGS: Lines, Tubes, and Devices: None. Cardiomediastinal Silhouette: Cardiomegaly, similar to prior study. Lungs and Pleura: Essentially unchanged diffuse interstitial opacities. No definite focal airspace consolidation or pleural effusion. Bones and Soft Tissues: Degenerative changes in the thoracic spine. IMPRESSION: No definitive evidence of acute cardiopulmonary abnormality or significant interval change. Nonspecific diffuse interstitial opacities, possibly chronic with superimposed edema and/or atypical infection not excluded. Cardiomegaly. Electronically signed by: Anam Taylor DO (08/06/2021 3:08 AM) [facility] DICTATED AND SIGNED BY: ANAM TAYLOR DO DATE: 08/06/21 0306 CC: SUNITA WIGGINS MD; SHAHIDA HOLLY MD ~MTH0 0 Heart Score: C/O Chest Pain: Yes HEART Score for Chest Pain: HEART Score for Chest Pain Response (Comments) Value History Highly Suspicious [address] Depression 2 Age >45 - < 65 1 Risk Factors >3 Risk Factors or Hx CAD 2 Troponin >1-<3x Normal Limit 1 Total 8 Risk Factors: Risk Factors: DM, Current or recent (<one month) smoker, HTN, HLP, family history of CAD, obesity. Risk Scores: Score 0 - 3: 2.5% MACE over next 6 weeks - Discharge Home Score 4 - 6: 20.3% MACE over next 6 weeks - Admit for Clinical Observation Score 7 - 10: 72.7% MACE over next 6 weeks - Early Invasive Strategies Course & Med Decision Making: Course & Med Decision Making Pertinent Labs and Imaging studies reviewed. (See chart for details) Discussed presentation, testing and tx. plan with Dr. Arnett at [facility]- she will accept pt. in transfer if beds are availale. 0400. Pt. Transfer to [facility]- Rm 106 Critical Care- 90 min. Impression: 1. Respiratory Failure- Hypoxic 2. Leukocytosis 17.4 3. DM = Gluc. 325 4. Elevated D-dimer 1.25 5. CHF 6. Accelerated hypertension 7. Hx of COPD 8. Elevated Lactic Acid 3.4 9. Elevated D-dimer 1.25 10. Elevated Trop- lst trop= 0.044 2nd trop= 0.158 11. Pneumonia [] Dragon Disclaimer: Marsha Disclaimer: This electronic medical record was generated, in whole or in part, using a voice recognition dictation system. Departure Departure: Referrals: SHAHIDA HOLLY MD (PCP) Marsha Disclaimer This chart was dictated in whole or in part using Voice Recognition software in a busy, high-work load, and often noisy Emergency Department environment. It may contain unintended and wholly unrecognized errors or omissions. SUNITA WIGGINS MD Aug 06, 2021 02:23
[2021-08-06] MEDS ORDERED: IPRATRPIUM/ALBUTEROL 0.5/2.5MG 3 ML NEBU. ONE (02:53)
[2021-08-06] MEDS ORDERED: FUROSEMIDE 40 MG/4 ML VIAL IVP ONE (03:00)
[2021-08-06] MEDS ORDERED: ASPIRIN CHEWABLE 81 MG TABLET. PO ONE (03:00)
[2021-08-06] MEDS ORDERED: NITROGLYCERIN OINT 1 GM PACKET. TP ONE (03:00)
[2021-08-06] MEDS ORDERED: IPRATRPIUM/ALBUTEROL 0.5/2.5MG 3 ML NEBU. NEB ONE (03:00)
[2021-08-06 03:03] LABS: BGAS PH 7.33 (7.35-7.46)
--- NOTE | 2021-08-06 03:10 | RAD ---
EXAMINATION: XR CHEST 1V CLINICAL HISTORY: Dyspnea EXAM DATE/TIME: 08/06/2021 2:44 AM COMPARISON: 07/26/2021 FINDINGS: Lines, Tubes, and Devices: None. Cardiomediastinal Silhouette: Cardiomegaly, similar to prior study. Lungs and Pleura: Essentially unchanged diffuse interstitial opacities. No definite focal airspace co nsolidation or pleural effusion. Bones and Soft Tissues: Degenerative changes in the thoracic spine. IMPRESSION: No definitive evidence of acute cardiopulmonary abnormality or significant interval change. Nonspecific diffuse interstitial opacities, possibly chronic with superimposed edema and/or atypical infection not excluded. Cardiomegaly. Electronically signed by: Anam Gomez DO (08/06/2021 3:08 AM) MARRY
--- NOTE | 2021-08-06 03:19 | EKG ---
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
[2021-08-06 03:26] LABS: CALCIUM 8.8 mg/dL (8.5-10.1); CREATININE 1.4 mg/dL (0.7-1.3); GFR 51.4; POTASSIUM 4.2 mmol/L (3.5-5.1)
[2021-08-06 03:39] LABS: ALBUMIN 3.5 g/dL (3.4-5.0); DIRECT BILIRUBIN 0.2 mg/dL (0.0-0.2); MAGNESIUM 2.2 mg/dL (1.8-2.4); TOTAL BILIRUBIN 0.8 mg/dL (0.2-1.0)
[2021-08-06 03:43] LABS: BASO # 0.1 x10^3/uL (0.0-0.2); BASO % 1 % (0-3); EOS # 0.3 x10^3/uL (0.0-0.7); EOS % 2 % (0-3); HEMATOCRIT 40.1 % (39.0-53.0); HEMOGLOBIN 12.9 g/dL (13.0-17.5); LYMPH # 5.7 x10^3/uL (1.0-4.8); LYMPH % 33 % (24-48); MEAN CORPUSCULAR HEMOGLOBIN 31 pg (25-35); MEAN CORPUSCULAR HGB CONC 32 g/dL (31-37); MEAN CORPUSCULAR VOLUME 95 fL (79-100); MONO # 1.3 x10^3/uL (0.0-1.1); MONO % 8 % (0-9); NEUT # 9.9 x10^3uL (1.8-7.7); NEUT % 57 % (31-73); PLATELET COUNT 396 x10^3/uL (140-400); RED CELL DISTRIBUTION WIDTH 14.8 % (11.5-14.5); WHITE BLOOD COUNT 17.4 x10^3/uL (4.0-11.0)
[2021-08-06] MEDS ORDERED: ENOXAPARIN ** NOTE DOSE ** SYRINGE SQ ONE (04:00)
[2021-08-06 04:10] LABS: % BANDS 2 % (0-9); % BASOS 1 % (0-3); % EOS 1 % (0-5); % LYMPHS 30 % (24-48); % MONOS 8 % (0-10); % SEGS 58 % (35-66)
[2021-08-06 04:11] LABS: PLT ESTIMATE ADEQUATE (ADEQUATE)
[2021-08-06] MEDS ORDERED: IV NORMAL SALINE 50ML 50 ML ONE (04:15)
[2021-08-06] MEDS ORDERED: cefTRIAXone SODIUM 1 GM VIAL ONE (04:15)
[2021-08-06] MEDS ORDERED: methylPREDNISolone SOD SUCC PF 125 MG/2 ML VIAL. IV ONE (04:30)
[2021-08-06] MEDS ORDERED: AZITHROMYCIN 250 MG TABLET. PO ONE (04:30)
[2021-08-06] MEDS ORDERED: IV NORMAL SALINE 250ML 250 ML ONE (04:58)
[2021-08-06] MEDS ORDERED: AZITHROMYCIN 500 MG VIAL. IV ONE (04:58)
[2021-08-06] MEDS ORDERED: AZITHROMYCIN 500 MG in IV NORMAL SALINE 250ML 250 ML IV ONE (05:00)
[2021-08-06 05:17] VITALS: BP 123/60
--- NOTE | 2021-08-06 05:31 | EKG ---
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
== END 2021-08-06 05:48 | disposition short-term general hospital (02) ==
LOC: ER 02:18
DX: J96.91 Respiratory failure, unspecified with hypoxia (principal); D72.829 Elevated white blood cell count, unspecified; I11.0 Hypertensive heart disease with heart failure; I50.9 Heart failure, unspecified; J44.9 Chronic obstructive pulmonary disease, unspecified; E11.9 Type 2 diabetes mellitus without complications; J18.9 Pneumonia, unspecified organism; R79.1 Abnormal coagulation profile; F17.210 Nicotine dependence, cigarettes, uncomplicated; Z20.822 Contact with and (suspected) exposure to COVID-19
CPT/HCPCS: 36415; 36600; 71045; 80048; 80076; 82550; 82803; 83605; 83690; 83735; 83880; 84443; 84484; 85007; 85025; 85379; 85610; 85730; 87040; 87426; 93005; 94640; 94660; 96365; 96367; 96372; 96375; 99291; 99292; C9803; J0456; J0696; J1650; J1940; J2930; J7050; U0003; 82947

== ENCOUNTER → 2021-08-24 | Outpatient (CLI) | payer BC ==
[2021-08-06 05:17] VITALS: BP 123/60
[~2021-08-24] MED LIST changes: -BENA20TA4 PO; +BENA20TA84 PO; -BENA40TA3 PO; +BENA40TA74 PO
[2021-08-24 11:45] LABS: ALBUMIN 3.5 g/dL (3.4-5.0); ALBUMIN/GLOBULIN RATIO 0.9 (1.0-1.7); CALCIUM 8.7 mg/dL (8.5-10.1); CREATININE 1.1 mg/dL (0.7-1.3); GFR 67.8; POTASSIUM 3.8 mmol/L (3.5-5.1); TOTAL BILIRUBIN 1.5 mg/dL (0.2-1.0); TOTAL PROTEIN 7.2 g/dL (6.4-8.2)
== END ==
LOC: LAB 09:58
PROVIDERS: ATTEND Internal Medicine Cardiovascular Disease
DX: I25.5 Ischemic cardiomyopathy (principal)
CPT/HCPCS: 36415; 80053